=== PATIENT | female | born 1965 | race Caucasian/White ===

== ENCOUNTER → 2017-03-26 | Outpatient (CLI) | payer OTHER | LOC: BMCIMAGING 15:09 → EDSTATUS 15:10 | PROVIDERS: ATTEND Physician Assistant | DX: M79.602 Pain in left arm (principal); M54.2 Cervicalgia; R20.2 Paresthesia of skin; M25.512 Pain in left shoulder; M50.321 Other cervical disc degeneration at C4-C5 level; M50.322 Other cervical disc degeneration at C5-C6 level ==